=== PATIENT | female | born 1965 | race African-American/Black ===

== ENCOUNTER 2016-07-15 06:14 | Day surgery (SDC) | payer BC ==
--- NOTE | ~2016-07-15 | EGD ---
EGD REPORT [facility] [address] [id number] NAME: LAINE MARVIN : 65 STATUS : REG [facility] PAT#: [id number] AGE: 51 ADM/REG DATE : 07/15/16 MR#: [id number] REPORT SERV DATE: 07/15/16 DICTATED BY: NITISH OLMOS DATE: 07/15/16 REPORT STATUS : Draft TRANSCRIBED BY: [employer] DATE: 07/15/16 [facility] Patient Name: Laine Marvin Date of : 1965 Attending MD: NITISH OLMOS MD Procedure Date No Time: 07/15/2016 Procedure: Colonoscopy Indications: Screening for colorectal malignant neoplasm Referring MD: VIOLETA URBANO III, MD Medicines: as per anesthesia Complications: No immediate complications. Procedure: Pre-Anesthesia Assessment: - ASA Grade Assessment: I - A normal, healthy patient. After I obtained informed consent, the scope was passed under direct vision. Throughout the procedure, the patient's blood pressure, pulse, and oxygen saturations were monitored continuously. The PCF [id number] was introduced through the anus and advanced to the cecum, identified by appendiceal orifice and ileocecal valve. The colonoscopy was performed without difficulty. The patient tolerated the procedure. The quality of the bowel preparation was fair. Findings: The perianal and digital rectal examinations were normal. The colon (entire examined portion) appeared normal. Impression: - The entire examined colon is normal. Recommendation: - Repeat colonoscopy in 10 years for surveillance. Procedure Code(s): --- Professional --- 04857, Colonoscopy, flexible, proximal to splenic flexure; diagnostic, with or without collection of specimen(s) by brushing or washing, with or without colon decompression (separate procedure) Diagnosis Code(s): --- Professional --- Z12.11, Encounter for screening for malignant neoplasm of colon CPT copyright 2013 [employer]. All rights reserved. The codes documented in this report are preliminary and upon hub lead review may EGD REPORT [facility] [address] [address] NAME: LAINE MARVIN : 65 STATUS : REG [facility]#: [id number] AGE: 51 ADM/REG DATE : 07/15/16 MR#: [id number] REPORT SERV DATE: 07/15/16 DICTATED BY: NITISH OLMOS. DATE: 07/15/16 REPORT STATUS : Draft TRANSCRIBED BY: [employer] DATE: 07/15/16 be revised to meet current compliance requirements. NITISH OLMOS MD 07/15/2016 8:35 AM This report has been signed electronically. Number of Addenda: 0 Note Initiated On: 07/15/2016 7:01 AM Scope Withdrawal Time 0 hours 6 minutes 17 seconds [id number] [id number]
[~2016-07-15 06:14] MED LIST: *DENIES; ALEVE220 MG PO
== END 2016-07-15 23:59 | disposition home or self-care (01) ==
LOC: DMU 06:14
PROVIDERS: Internal Medicine Gastroenterology
PROC: 0DJD8ZZ Inspection of Lower Intestinal Tract, Via Natural or Artificial Opening Endoscopic (ICD-10-PCS; principal; 2016-07-15 08:00)
DX: Z12.11 Encounter for screening for malignant neoplasm of colon (principal); Z79.1 Long term (current) use of non-steroidal anti-inflammatories (NSAID)
CPT/HCPCS: 84703